=== PATIENT | female | born 2000 | race American Indian/Alaskan Native ===

== ENCOUNTER 2020-09-29 22:43 | Emergency (ER) | payer SELFPAY ==
[2020-09-29 23:56] LABS: Basophils # (Auto) 0.1 K/mm3 (0.0-0.1); Basophils % (Auto) 0.3 % (0.0-1.8); Eosinophils % (Auto) 0.1 % (0.0-4.3); Hematocrit 32.6 % (30.3-42.9); Hemoglobin 10.4 gm/dl (10.1-14.3); Lymphocytes # (Auto) 1.3 K/mm3 (1.2-5.4); Lymphocytes % (Auto) 6.9 % (13.4-35.0); Mean Corpuscular HGB Conc 32 % (30-34); Mean Corpuscular Volume 76 fl (79-97); Monocytes # (Auto) 1.1 K/mm3 (0.0-0.8); Monocytes % (Auto) 5.8 % (0.0-7.3); Platelet Count 397 K/mm3 (140-440)
[2020-09-30 00:52] LABS: Alanine Aminotransferase 7 units/L (7-56); Albumin 4.6 g/dL (3.9-5); Blood Urea Nitrogen 12 mg/dL (7-17); Calcium 10.2 mg/dL (8.4-10.2); Hemolysis Index 0
[2020-09-30 00:59] LABS: BUN/Creatinine Ratio 20
[2020-09-30 01:04] VITALS: BP 117/68
[2020-09-30 03:53] LABS: Bilirubin,Urine NEG (Negative); Blood,Urine NEG (Negative); Color,Urine Yellow (Yellow); Mucus,Urine 2+ /HPF; Protein,Urine <15 mg/dL mg/dL (Negative); Urobilinogen,Urine < 2.0 mg/dL (<2.0)
[2020-09-30] MEDS ORDERED: AZITHROMYCIN 250 MG TAB PO ONE (04:42)
[2020-09-30] MEDS ORDERED: ONDANSETRON 4 MG ODT TAB PO ONE (04:42)
--- NOTE | 2020-09-30 05:12 | XRay Report ---
CHEST 1 VIEW 0454 INDICATION / CLINICAL INFORMATION: cough fever PUI COMPARISON: None available. FINDINGS: SUPPORT DEVICES: None HEART / MEDIASTINUM: No significant abnormality. LUNGS / PLEURA: No significant pulmonary or pleural abnormality. No pneumothorax. ADDITIONAL FINDINGS: No significant additional findings. IMPRESSION: No significant acute abnormality Signer Name: Tyson Sanchez MD Signed: 09/30/2020 5:08 AM Workstation Name: [id number]
--- NOTE | 2020-09-30 05:21 | Emergency Department Report ---
ED General Adult HPI - General Chief complaint: Abdominal Pain Stated complaint: SOB/FEVER/AB PAIN/SORE THROAT Time Seen by Provider: 09/30/20 04:40 Source: patient Mode of arrival: Ambulatory Limitations: No Limitations - History of Present Illness Initial comments: pt is a 20 y/o aaf who presents for SOB, Fever, abdominal pain, and headache x 2 days patient denies history of asthma, denies suspicious contacts, symptoms are exacerbated by activity. Symptoms are relieved by nothing tried. Last nausea vomiting was last night. Patient is tolerating p.o. intake at this time. - Related Data Previous Rx's Medication Instructions Recorded Last Taken Type Acetaminophen [Non-Aspirin Extra 1,000 mg PO Q6H PRN #30 tablet 09/30/20 Unknown Rx Strength] Azithromycin 500 mg PO QDPC #5 tablet 09/30/20 Unknown Rx Allergies Allergy/AdvReac Type Severity Reaction Status Date / Time No Known Allergies Allergy Unverified 09/29/20 23:33 ED Review of Systems ROS: Stated complaint: SOB/FEVER/AB PAIN/SORE THROAT Other details as noted in HPI Constitutional: chills, fever, malaise Eyes: denies: eye pain, eye discharge, vision change ENT: ear pain, throat pain, congestion Respiratory: cough, shortness of breath. denies: wheezing Cardiovascular: denies: chest pain, palpitations Endocrine: no symptoms reported Gastrointestinal: abdominal pain, nausea, vomiting, diarrhea Genitourinary: denies: urgency, dysuria, discharge Musculoskeletal: denies: back pain, joint swelling, arthralgia Skin: denies: rash, lesions Neurological: headache. denies: weakness, paresthesias Psychiatric: denies: anxiety, depression Hematological/Lymphatic: denies: easy bleeding, easy bruising ED Past Medical Hx - Past Medical History Previous Medical History?: Yes Additional medical history: anemia - Surgical History Past Surgical History?: No - Social History Smoking Status: Former Smoker Substance Use Type: Marijuana - Medications Home Medications: Home Medications Medication Instructions Recorded Confirmed Last Taken Type Acetaminophen [Non-Aspirin Extra 1,000 mg PO Q6H PRN #30 tablet 09/30/20 Unknown Rx Strength] Azithromycin 500 mg PO QDPC #5 tablet 09/30/20 Unknown Rx ED Physical Exam - General Limitations: No Limitations General appearance: alert, in no apparent distress - Head Head exam: Present: normocephalic, normal inspection - Eye Eye exam: Present: normal appearance, PERRL, EOMI Pupils: Present: normal accommodation - ENT ENT exam: Present: normal orophraynx, mucous membranes moist, TM's normal b ilaterally, normal external ear exam - Neck Neck exam: Present: normal inspection, full ROM. Absent: tenderness, lymphadenopathy - Respiratory Respiratory exam: Present: normal lung sounds bilaterally. Absent: respiratory distress, wheezes, stridor, chest wall tenderness - Cardiovascular Cardiovascular Exam: Present: regular rate, normal rhythm, normal heart sounds. Absent: systolic murmur, diastolic murmur, rubs, gallop - GI/Abdominal GI/Abdominal exam: Present: soft, normal bowel sounds. Absent: distended, tenderness, guarding, rebound, rigid, bruit, hernia - Rectal Rectal exam: Present: deferred - Extremities Exam Extremities exam: Present: normal inspection, full ROM, normal capillary refill. Absent: tenderness - Back Exam Back exam: Present: normal inspection, full ROM. Absent: tenderness, CVA tenderness (R), CVA tenderness (L) - Neurological Exam Neurological exam: Present: alert, oriented X3, CN II-XII intact, normal gait - Expanded Neurological Exam Expanded Patient oriented to: Present: person, place, time Speech: Present: fluid speech Motor strength exam: RUE: 5, LUE: 5, RLE: 5, LLE: 5 Best Eye Response ([place]): (4) open spontaneously Best Motor Response ([place]): (6) obeys commands Best Verbal Response ([place]): (5) oriented [place] Total: 15 - Psychiatric Psychiatric exam: Present: normal affect, normal mood - Skin Skin exam: Present: warm, dry, intact, normal color. Absent: rash ED Course Vital Signs 09/29/20 23:34 Temperature 97.3 F L Pulse Rate 97 H Respiratory 18 Rate Blood Pressure 117/68 O2 Sat by Pulse 99 Oximetry ED Medical Decision Making - Lab Data Result diagrams: 09/29/20 23:37 09/29/20 23:37 Labs 09/29/20 09/29/20 09/29/20 23:37 23:37 23:37 WBC 19.3 H RBC 4.30 Hgb 10.4 Hct 32.6 MCV 76 L MCH 24 L MCHC 32 RDW 18.0 H Plt Count 397 Lymph % (Auto) 6.9 L [place] % (Auto) 5.8 Eos % (Auto) 0.1 Baso % (Auto) 0.3 Lymph # (Auto) 1.3 [place] # (Auto) 1.1 H Eos # (Auto) 0.0 Baso # (Auto) 0.1 Seg Neutrophils % 86.9 H Seg Neutrophils # 16.7 H Sodium 137 Potassium 3.8 Chloride 99.8 Carbon Dioxide 21 L Anion Gap 20 BUN 12 Creatinine 0.6 Estimated GFR > 60 BUN/Creatinine Ratio 20 Glucose 80 Calcium 10.2 Total Bilirubin 0.20 AST 12 ALT 7 Alkaline Phosphatase 69 Total Protein 8.2 Albumin 4.6 Albumin/Globulin Ratio 1.3 HCG, Qual Negative Urine Color Urine Turbidity Urine pH Ur Specific [place] Urine Protein Urine Glucose (UA) Urine Ketones Urine Blood Urine Nitrite Urine Bilirubin Urine Urobilinogen Ur Leukocyte Esterase Urine WBC (Auto) Urine RBC (Auto) U Epithel Cells (Auto) Urine Mucus 09/30/20 Unknown WBC RBC Hgb Hct MCV MCH MCHC RDW Plt Count Lymph % (Auto) [place] % (Auto) Eos % (Auto) Baso % (Auto) Lymph # (Auto) [place] # (Auto) Eos # (Auto) Baso # (Auto) Seg Neutrophils % Seg Neutrophils # Sodium Potassium Chloride Carbon Dioxide Anion Gap BUN Creatinine Estimated GFR BUN/Creatinine Ratio Glucose Calcium Total Bilirubin AST ALT Alkaline Phosphatase Total Protein Albumin Albumin/Globulin Ratio HCG, Qual Urine Color Yellow Urine Turbidity Clear Urine pH 6.0 Ur Specific [place] 1.011 Urine Protein <15 mg/dl Urine Glucose (UA) Neg Urine Ketones 80 Urine Blood Neg Urine Nitrite Neg Urine Bilirubin Neg Urine Urobilinogen < 2.0 Ur Leukocyte Esterase Neg Urine WBC (Auto) 1.0 Urine RBC (Auto) 1.0 U Epithel Cells (Auto) 1.0 Urine Mucus 2+ - Radiology Data Radiology results: report reviewed, image reviewed CHEST 1 VIEW 0454 INDICATION / CLINICAL INFORMATION: cough fever PUI COMPARISON: None available. FINDINGS: SUPPORT DEVICES: None HEART / MEDIASTINUM: No significant abnormality. LUNGS / PLEURA: No significant pulmonary or pleural abnormality. No pneumothorax. ADDITIONAL FINDINGS: No significant additional findings. IMPRESSION: No significant acute abnormality Signer Name: Tyson Sanchez MD Signed: 09/30/2020 5:08 AM Workstation Name: [email or web address], [id number] Transcribed By: GERARDO Dictated By: Tyson Sanchez MD Electronically Authenticated By: Tyson Sanchez MD Signed Date/Time: 09/30/20507 DD/ 7 TD/TT: - Medical Decision Making Chest x-ray normal no opacities no infiltrates, lungs are clear throughout no wheezing, ENT mild clear congestion and postnasal discharge, symptoms are consistent with PUI, patient denies suspicious contacts however patient is not Covid vaccinated. Plan DC to home , Diagnosis viral syndrome, PUI patient will continue to monitor fever and follow-up with PCP in 2 to 3 days she will return to ED should symptoms worsen Critical care attestation.: If time is entered above; I have spent that time in minutes in the direct care of this critically ill patient, excluding procedure time. ED Disposition Clinical Impression: Viral syndrome, Person under investigation for COVID-19 Disposition: DC-01 TO HOME OR SELFCARE Is pt being admited?: No Does the pt Need Aspirin: No Condition: Stable Instructions: Abdominal Pain (ED), Viral Illness, Adult, Prevent the Spread of COVID-19 if You Are Sick - [facility] Additional Instructions: Take medications as prescribed, hydrate, follow-up with PCP in 2 to 3 days. Return to emergency department should symptoms worsen. Prescriptions: Azithromycin 500 mg PO QDPC #5 tablet Acetaminophen [Non-Aspirin Extra Strength] 1,000 mg PO Q6H PRN #30 tablet PRN Reason: fever pain Referrals: YANET UMAÑA MD [Referring] - 3-5 Days Forms: Work/School Release Form(ED) Time of Disposition: 05:34
== END 2020-09-30 06:10 | disposition home or self-care (01) ==
LOC: ED 22:43
DX: B34.9 Viral infection, unspecified (principal); D64.9 Anemia, unspecified; F12.90 Cannabis use, unspecified, uncomplicated; Z20.822 Contact with and (suspected) exposure to COVID-19; Z79.899 Other long term (current) drug therapy; Z87.891 Personal history of nicotine dependence
CPT/HCPCS: 36415; 71045; 80053; 81001; 84703; 85025; Q0162